=== PATIENT | female | born 1985 | race Caucasian/White ===

== ENCOUNTER 2018-05-01 13:49 | Emergency (ER) | payer BC ==
[2018-05-01] MEDS ORDERED: METOCLOPRAMIDE 5 MG/ML 2 ML VIAL IVP STA (14:13)
--- NOTE | 2018-05-01 14:13 | ED ---
General Adult HPI - General Chief complaint: Abdominal Pain Stated complaint: Abd Pain-19 wks Source: patient Mode of arrival: ambulatory Limitations: no limitations - History of Present Illness Initial comments: Dictation was produced using relocality dictation software. please excuse any grammatical, word or spelling errors. Chief Complaint: 33-year-old female is allegedly 19 weeks presents with suprapubic pain. History of Present Illness: Patient is 33-year-old female presents with suprapubic/right lower quadrant abdominal pain. Patient states she denies any abdominal surgery. Her symptoms started yesterday. States that she associated with nausea. She does have some fever and chills. Patient called her DOUBLE BACK OPERATOR told her to wait 24 hours and if her pain didn't resolve come to the emergency department. Patient states that she does have some pain experience worsening pain with the car ride here. She also couple episodes of diarrhea. The ROS documented in this emergency department record has been reviewed and confirmed by me. Those systems with pertinent positive or negative responses have been documented in the HPI. All other systems are other negative and/or noncontributory. - Related Data Home Medications Medication Instructions Recorded Confirmed Hsr-Ulyx-Gaxtf Acid 1 tab PO HS 02/21/16 05/01/18 [-U Capsule (formulary)] Allergies Allergy/AdvReac Type Severity Reaction Status Date / Time No Known Allergies Allergy Verified 05/01/18 14:02 Review of Systems ROS Statement: Those systems with pertinent positive or pertinent negative responses have been documented in the HPI. ROS Other: All systems not noted in ROS Statement are negative. Past Medical History Past Medical History: No Reported History Additional Past Medical History / Comment(s): Obstetric history: This is her first and she has has care with me since 9 weeks. A+, abs neg, Rub Imm, RPR NR, Hep B Neg, HIV NR. normal 1hr GTT. normal anatomy US. GBS neg. History of Any Multi-Drug Resistant Organisms: None Reported Past Surgical History: No Surgical Hx Reported Past Psychological History: Depression Smoking Status: Never smoker Past Alcohol Use History: None Reported Past Drug Use History: None Reported - Past Family History Mother Family Medical History: Hypertension General Exam - General Exam Comments Initial Comments: PHYSICAL EXAM: General Impression: Alert and oriented x3, not in acute distress HEENT: Normocephalic atraumatic, extra-ocular movements intact, pupils equal and reactive to light bilaterally, mucous membranes moist. Cardiovascular: Heart regular rate and rhythm, S1&S2 audible, no murmurs, rubs or gallops Chest: Lungs clear to auscultation bilaterally, no rhonchi, no wheeze, no rales Abdomen: Bowel sounds present, abdomen soft, non-tender, non-distended, no organomegaly, appropriately gravid, mild rebound tenderness Musculoskeletal: Pulses present and equal in all extremities, no peripheral edema Motor: Power 5/5 bilaterally, no focal deficits noted Neurological: CN II-XII grossly intact, no focal motor or sensory deficits noted Skin: Intact with no visualized rashes Psych: Normal affect and mood Limitations: no limitations Course Vital Signs 05/01/18 05/01/18 13:50 16:00 Temperature 98.3 F 98.1 F Pulse Rate 93 71 Respiratory 18 18 Rate Blood Pressure 124/83 107/66 O2 Sat by Pulse 99 98 Oximetry Medical Decision Making - Medical Decision Making ED course: 33-year-old female presents with chief complaint of suprapubic/right lower quadrant pain. Vital signs upon arrival are within acceptable limits.Return evaluation obtained. Patient has mild leukocytosis of 11.2. Rest of CBC is unremarkable. Metabolic panel is positive for mild non-gap acidosis. Urinalysis is negative. Ultrasound of the appendix was performed or attempted. Nonvisualization of the appendix however no surrounding inflammatory changes. There is a complex cystic structure in the right pelvis measuring 2.0 cm could be secondary to the right ovary. Abdominal ultrasound was performed showing no acute processes. The ultrasound was performed showing viable intrauterine with good heart rate. Still abdominal examinations performed with improvement of right lower quadrant tenderness. She decision making was performed with patient. Discussed with patient that there is low however some clinical suspicion of appendicitis at this time. Discussed with patient that the test of choice would be CT with contrast to evaluate the appendix. Discussed with patient the risk of radiation to herself and fetus. Patient has strict return precautions. She prefers that no further testing be performed and she states that she will return should she have any worsening symptoms. Patient on a pillow bedside. Patient's ventilatory without complications. Patient pain is controlled. There is reason to believe that patient having symptoms in the right lower quadrant secondary to possible right ovarian cyst. Patient is agreeable and understandable to this plan. I believe this plan is reasonable patient is and strong suspicious for appendicitis. - Lab Data Result diagrams: 05/01/18 14:15 05/01/18 14:15 Lab Results 05/01/18 05/01/18 05/01/18 Range/Units 14:15 14:15 14:15 WBC 11.2 H (3.8-10.6) k/uL RBC 4.59 (3.80-5.40) m/uL Hgb 12.7 (11.4-16.0) gm/dL Hct 39.2 (34.0-46.0) % MCV 85.4 (80.0-100.0) fL MCH 27.6 (25.0-35.0) pg MCHC 32.4 (31.0-37.0) g/dL RDW 14.7 (11.5-15.5) % Plt Count 236 (150-450) k/uL Neutrophils % 79 % Lymphocytes % 12 % Monocytes % 6 % Eosinophils % 1 % Basophils % 0 % Neutrophils # 8.8 H (1.3-7.7) k/uL Lymphocytes # 1.3 (1.0-4.8) k/uL Monocytes # 0.7 (0-1.0) k/uL Eosinophils # 0.1 (0-0.7) k/uL Basophils # 0.0 (0-0.2) k/uL Sodium 137 (137-145) mmol/L Potassium 4.3 (3.5-5.1) mmol/L Chloride 108 H (98-107) mmol/L Carbon Dioxide 20 L (22-30) mmol/L Anion Gap 9 mmol/L BUN 10 (7-17) mg/dL Creatinine 0.39 L (0.52-1.04) mg/dL Est GFR (CKD-EPI)AfAm >90 (>60 ml/min/1.73 sqM) Est GFR (CKD-EPI)NonAf >90 (>60 ml/min/1.73 sqM) Glucose 88 (74-99) mg/dL Calcium 9.4 (8.4-10.2) mg/dL Total Bilirubin 0.3 (0.2-1.3) mg/dL AST 19 (14-36) U/L ALT 16 (9-52) U/L Alkaline Phosphatase 52 (38-126) U/L Total Protein 6.5 (6.3-8.2) g/dL Albumin 3.6 (3.5-5.0) g/dL Lipase 46 (23-300) U/L Urine Color Urine Appearance (Clear) Urine pH (5.0-8.0) Ur Specific [place] (1.001-1.035) Urine Protein (Negative) Urine Glucose (UA) (Negative) Urine Ketones (Negative) Urine Blood (Negative) Urine Nitrite (Negative) Urine Bilirubin (Negative) Urine Urobilinogen (<2.0) mg/dL Ur Leukocyte Esterase (Negative) Urine RBC (0-5) /hpf Urine WBC (0-5) /hpf Ur Squamous Epith Cells (0-4) /hpf Urine Bacteria (None) /hpf Hyaline Casts (0-2) /lpf Urine Mucus (None) /hpf Blood Type A Positive Blood Type Recheck No Antibody Screen NEGATIVE Spec Expiration Date 05/04/2018 - 231405/01/18 Range/Units 14:18 WBC (3.8-10.6) k/uL RBC (3.80-5.40) m/uL Hgb (11.4-16.0) gm/dL Hct (34.0-46.0) % MCV (80.0-100.0) fL MCH (25.0-35.0) pg MCHC (31.0-37.0) g/dL RDW (11.5-15.5) % Plt Count (150-450) k/uL Neutrophils % % Lymphocytes % % Monocytes % % Eosinophils % % Basophils % % Neutrophils # (1.3-7.7) k/uL Lymphocytes # (1.0-4.8) k/uL Monocytes # (0-1.0) k/uL Eosinophils # (0-0.7) k/uL Basophils # (0-0.2) k/uL Sodium (137-145) mmol/L Potassium (3.5-5.1) mmol/L Chloride (98-107) mmol/L Carbon Dioxide (22-30) mmol/L Anion Gap mmol/L BUN (7-17) mg/dL Creatinine (0.52-1.04) mg/dL Est GFR (CKD-EPI)AfAm (>60 ml/min/1.73 sqM) Est GFR (CKD-EPI)NonAf (>60 ml/min/1.73 sqM) Glucose (74-99) mg/dL Calcium (8.4-10.2) mg/dL Total Bilirubin (0.2-1.3) mg/dL AST (14-36) U/L ALT (9-52) U/L Alkaline Phosphatase (38-126) U/L Total Protein (6.3-8.2) g/dL Albumin (3.5-5.0) g/dL Lipase (23-300) U/L Urine Color Yellow Urine Appearance Clear (Clear) Urine pH 6.0 (5.0-8.0) Ur Specific [place] 1.020 (1.001-1.035) Urine Protein Trace H (Negative) Urine Glucose (UA) Negative (Negative) Urine Ketones Negative (Negative) Urine Blood Negative (Negative) Urine Nitrite Negative (Negative) Urine Bilirubin Negative (Negative) Urine Urobilinogen <2.0 (<2.0) mg/dL Ur Leukocyte Esterase Trace H (Negative) Urine RBC 1 (0-5) /hpf Urine WBC 1 (0-5) /hpf Ur Squamous Epith Cells 9 H (0-4) /hpf Urine Bacteria Rare H (None) /hpf Hyaline Casts 3 H (0-2) /lpf Urine Mucus Moderate H (None) /hpf Blood Type Blood Type Recheck Antibody Screen Spec Expiration Date Disposition Clinical Impression: Right lower quadrant abdominal pain Disposition: HOME SELF-CARE Condition: Good Instructions: Abdominal Pain in (ED) Is patient prescribed a controlled substance at d/c from ED?: No Referrals: Sam Angelo MD [Primary Care Provider] - 1-2 days Time of Disposition: 16:24
[2018-05-01 14:38] LABS: Appearance,Urine Clear (Clear); Bacteria,Urine Rare /hpf; Bilirubin,Urine Negative (Negative); Blood,Urine Negative (Negative); Color,Urine Yellow; Glucose,Urine (UA) Negative (Negative); Hyaline Casts,Urine 3 /lpf (0-2); Ketones,Urine Negative (Negative); Leukocyte Esterase,Urine Trace (Negative); Mucus,Urine Moderate /hpf; Nitrite,Urine Negative (Negative); Protein,Urine Trace (Negative); RBC,Urine 1 /hpf (0-5); Squamous Epithelial Cell,Urine 9 /hpf (0-4); Urobilinogen,Urine <2.0 mg/dL (<2.0); WBC,Urine 1 /hpf (0-5)
[2018-05-01 15:09] LABS: Basophils % (A) 0 %; Eosinophils # (A) 0.1 k/uL (0-0.7); Eosinophils % (A) 1 %; HCT 39.2 % (34.0-46.0); HGB 12.7 gm/dL (11.4-16.0); Lymphocytes # (A) 1.3 k/uL (1.0-4.8); Lymphocytes % (A) 12 %; MCH 27.6 pg (25.0-35.0); MCHC 32.4 g/dL (31.0-37.0); MCV 85.4 fL (80.0-100.0); Mean Platelet Volume 8.2; Monocytes # (A) 0.7 k/uL (0-1.0); Monocytes % (A) 6 %; Neutrophils # (A) 8.8 k/uL (1.3-7.7); Neutrophils % (A) 79 %; Platelet Count 236 k/uL (150-450); RBC 4.59 m/uL (3.80-5.40); RDW 14.7 % (11.5-15.5); WBC 11.2 k/uL (3.8-10.6)
[2018-05-01 15:13] LABS: ALT 16 U/L (9-52); AST 19 U/L (14-36); Albumin 3.6 g/dL (3.5-5.0); Alkaline Phosphatase 52 U/L (38-126); Anion Gap 9 mmol/L; Blood Urea Nitrogen 10 mg/dL (7-17); Calcium 9.4 mg/dL (8.4-10.2); Carbon Dioxide 20 mmol/L (22-30); Chloride 108 mmol/L (98-107); Glucose 88 mg/dL (74-99); Lipase 46 U/L (23-300); Potassium 4.3 mmol/L (3.5-5.1); Sodium 137 mmol/L (137-145); Total Bilirubin 0.3 mg/dL (0.2-1.3); Total Protein 6.5 g/dL (6.3-8.2)
--- NOTE | 2018-05-01 15:40 | US ---
EXAMINATION TYPE: US abdomen complete DATE OF EXAM: 05/01/2018 COMPARISON: NONE CLINICAL HISTORY: Pain. Nausea. Pt is 19 weeks EXAM MEASUREMENTS: Liver Length: 15.1 cm Gallbladder Wall: 0.2 cm CBD: 0.4 cm Spleen: 11.1 cm Right Kidney: 10.2 x 4.4 x 4.7 cm Left Kidney: 11.6 x 5.5 x 4.1 cm Pancreas: Tail obscured by overlying bowel gas,visualized portions wnl Liver: wnl Gallbladder: Slightly contracted. patient ate around noon. Evidence for sonographic Fuller's sign: No CBD: wnl as visualized, distal portion obscured by bowel gas Spleen: wnl Right Kidney: No hydronephrosis or masses seen Left Kidney: No hydronephrosis or masses seen Upper IVC: wnl Abd Aorta: wnl IMPRESSION: 1. Contracted gallbladder which limits its assessment. No obvious gallstones. Contracted state limits assessment for wall thickness.
--- NOTE | 2018-05-01 15:42 | US ---
EXAMINATION TYPE: US abdomen APPY DATE OF EXAM: 05/01/2018 COMPARISON: NONE CLINICAL HISTORY: Pain. Abdominal pain, nausea, diarrhea Patient is 19 weeks APPENDIX AP Diameter (normal < 6mm): Not visualized on this exam Is the appendix seen in its entirety from the proximal cecum to distal end: No Is there inflammatory changes or free fluid present: No Appendix not visualized due to overlying bowel gas. Right ovary is visualized and appears to have a c omplex cystic area measuring 2.0 x 1.3 x 1.9 cm IMPRESSION: 1. Nonvisualization of the appendix. Exam nondiagnostic for appendicitis. 2. There is a complex cystic structure in the right pelvis measuring 2.0 cm. This could be related to the right ovary correlate clinically.
--- NOTE | 2018-05-01 15:44 | US ---
EXAMINATION TYPE: US OB >= 14 wk fetus DATE OF EXAM: 05/01/2018 COMPARISON: None CLINICAL HISTORY: Pain TECHNIQUE: Transabdominal (TA) GESTATIONAL AGE / DATING Physician Established: (19 weeks/3 days) EDC: 09/22/2018 Dates by LMP: (19 weeks/3 days) EDC: 09/22/2018 Dates by First Scan: No previous this is first scan Dates by Current Scan: (19 weeks/5 days) EDC: 09/20/2018 Beta HCG (if available): Not available at this time SURVEY IUP: Single PLACENTA: Anterior PREVIA: No Previa TIARA: 12.6 cm Normal CERVICAL LENGTH (transabdominal: norm > 3.0cm): 3.5 cm BIOMETRY PRESENTATION: Vertex LIE: Longitudinal BPD: 4.67 cm 20 weeks / 1 days HC: 17.3 cm 19 weeks / 6 days AC: 14.1 cm 19 weeks / 3 days FL: 3.0 cm 19 weeks / 4 days ESTIMATED WEIGHT IN GRAMS: 300 grams ESTIMATED WEIGHT IN LBS/OZ: 0 lbs. 11 oz. WEIGHT PERCENTAGE BASED ON ESTABLISHED DATES: 53.7% HC/AC: 1.23 Normal FL/AC: 21.9 Normal HEART RATE: 159 bpm RHYTHM: Normal Viable IUP, measurements consistent with dates. Internal anatomy assessment was not submitted or perf ormed. Exam was a limited exam for viability through the emergency room. IMPRESSION: Viable intrauterine with a heart rate of 159 bpm and an estimated age of 19 weeks 5 days. R ecommend follow-up internal anatomy assessment on a short-term basis.
[2018-05-01 16:42] VITALS: BP 111/76; PULSE 70; RESP 16; TEMP 98
== END 2018-05-01 16:43 | disposition home or self-care (01) ==
LOC: EC 13:49
DX: O99.89 Other specified diseases and conditions complicating pregnancy, childbirth and the puerperium (principal); R10.31 Right lower quadrant pain; R11.0 Nausea; R50.9 Fever, unspecified; R19.7 Diarrhea, unspecified; O99.112 Other diseases of the blood and blood-forming organs and certain disorders involving the immune mechanism complicating pregnancy, second trimester; D72.829 Elevated white blood cell count, unspecified; O99.282 Endocrine, nutritional and metabolic diseases complicating pregnancy, second trimester; E87.2 Acidosis; Z3A.19 19 weeks gestation of pregnancy
CPT/HCPCS: 36415; 86900; 86901; 80053; 83690; 85025; 86850; 81001; 76705; 76700; 76805; 99284; 96374; J2765

== ENCOUNTER 2018-09-17 06:00 | Inpatient (IN) | payer BC ==
[2018-09-17] MEDS ORDERED: TERBUTALINE 1 MG/ML VIAL SQ PRN (06:30)
[2018-09-17] MEDS ORDERED: METHYLERGONOVINE 0.2 MG/ML 1 ML AMP IM PRN (06:30)
[2018-09-17] MEDS ORDERED: CARBOPROST TROMETHAMINE 250 MCG/ML 1 ML AMP IM PRN (06:30)
[2018-09-17] MEDS ORDERED: OXYTOCIN 30 UNITS/500 ML NS 30 UNIT in SALINE 1 500ML.BAG IV SCH (06:30)
[2018-09-17] MEDS ORDERED: LIDOCAINE 0.5% (PF) 5 MG/ML (50 ML SDV) SQ PRN (06:30)
[2018-09-17] MEDS ORDERED: OXYTOCIN 10 UNIT/ML 1 ML VIAL IM PRN (06:30)
[2018-09-17 06:39] VITALS: BMI 34.4
[2018-09-17] MEDS: LACTATED RINGERS 1,000 ML IV SCH ×2 (06:41→10:07)
[2018-09-17 06:58] LABS: Anisocytosis Slight; Basophils # (A) 0.1 k/uL (0-0.2); Basophils % (A) 0 %; Eosinophils # (A) 0.1 k/uL (0-0.7); Eosinophils % (A) 1 %; HCT 37.4 % (34.0-46.0); HGB 11.8 gm/dL (11.4-16.0); Hypochromasia Moderate; Lymphocytes # (A) 1.6 k/uL (1.0-4.8); Lymphocytes % (A) 15 %; MCH 25.4 pg (25.0-35.0); MCHC 31.6 g/dL (31.0-37.0); MCV 80.3 fL (80.0-100.0); Monocytes # (A) 0.7 k/uL (0-1.0); Monocytes % (A) 7 %; Neutrophils # (A) 8.3 k/uL (1.3-7.7); Neutrophils % (A) 76 %; Platelet Count 196 k/uL (150-450); RBC 4.66 m/uL (3.80-5.40); RDW 16.7 % (11.5-15.5); WBC 10.9 k/uL (3.8-10.6)
[2018-09-17] MEDS ORDERED: ROPIVACAINE 5MG/ML 20ML VIAL ONE (09:37)
[2018-09-17] MEDS ORDERED: fentaNYL (PF) 50 MCG/ML 5 ML AMP ONE (09:37)
[2018-09-17] MEDS ORDERED: SODIUM CHLORIDE 0.9% 100 ML BAG ONE (09:37)
[2018-09-17] MEDS ORDERED: ROPIVACAINE 100 MG, fentaNYL (PF) 200 MCG in SODIUM CHLORIDE 0.9% 76 ML EPIDURAL ONE (10:08)
[2018-09-17] MEDS ORDERED: SIMETHICONE 80 MG CHEWABLE PO PRN (13:40)
[2018-09-17] MEDS ORDERED: ZOLPIDEM 5 MG TAB PO PRN (13:40)
[2018-09-17] MEDS ORDERED: diphenhydrAMINE 50 MG CAP PO PRN (13:40)
[2018-09-17] MEDS ORDERED: HYDROCORTISONE 2.5% RECTAL CREAM 30 GM TUBE RECTAL PRN (13:40)
[2018-09-17] MEDS ORDERED: diphenhydrAMINE 50 MG/ML 1 ML VIAL IVP PRN ×2 (13:40)
[2018-09-17] MEDS ORDERED: WITCH HAZEL 1 EACH MED..PAD TOPICAL PRN (13:40)
[2018-09-17] MEDS ORDERED: BENZOCAINE/MENTHOL SPRAY 1 GM/SPRAY AEROSOL TOPICAL PRN (13:40)
[2018-09-17] MEDS ORDERED: LANOLIN CREAM 5 GM TUBE TOPICAL PRN (13:40)
[2018-09-17] MEDS ORDERED: diphenhydrAMINE 25 MG CAP PO PRN (13:40)
[2018-09-17] MEDS ORDERED: OXYTOCIN 20 UNITS/1000 ML NS 1,000 ML IV SCH (13:45)
[2018-09-17] MEDS: IBUPROFEN 600 MG TAB PO PRN (17:07)
[2018-09-17] MEDS: ACETAMINOPHEN TAB 325 MG TAB PO PRN (20:08)
[2018-09-17] MEDS: SENNOSIDES-DOCUSATE SODIUM 1 EACH TAB PO SCH (20:08)
[2018-09-18 00:10] VITALS: TEMP 97.8
[2018-09-18] MEDS: IBUPROFEN 600 MG TAB PO PRN ×2 (00:11→08:31)
[2018-09-18] MEDS: ACETAMINOPHEN TAB 325 MG TAB PO PRN ×2 (03:37→12:35)
--- NOTE | 2018-09-18 08:25 | P.HPOB ---
History of Present Illness H&P Date: 09/17/18 Chief Complaint: Induction of Labor 33-year-old presents at 39 weeks and 2 days for induction of labor. Her cervix 3 cm dilated, 80% effaced, -2 station. She is patricia irregularly. heart tones 130-135 with moderate variability and reactive. Review of Systems All systems: negative Constitutional: Denies chills, Denies fever Eyes: denies blurred vision, denies pain Ears, nose, mouth and throat: Denies headache, Denies sore throat Cardiovascular: Denies chest pain, Denies shortness of breath Respiratory: Denies cough Gastrointestinal: Denies abdominal pain, Denies diarrhea, Denies nausea, Denies vomiting Genitourinary: Denies dysuria, Denies hematuria Musculoskeletal: Denies myalgias Integumentary: Denies pruritus, Denies rash Neurological: Denies numbness, Denies weakness Psychiatric: Denies anxiety, Denies depression Endocrine: Denies fatigue, Denies weight change Past Medical History Past Medical History: No Reported History Additional Past Medical History / Comment(s): Obstetric history: First was a vaginal delivery. Second she had spontaneous . This is her third and she has has care with me since 6 weeks. A+, abs neg, Rub Imm, RPR NR, Hep B Neg, HIV NR. normal 1hr GTT. normal anatomy US. GBS neg. History of Any Multi-Drug Resistant Organisms: None Reported Past Surgical History: No Surgical Hx Reported Past Anesthesia/Blood Transfusion Reactions: No Reported Reaction Past Psychological History: Depression Smoking Status: Never smoker Past Alcohol Use History: None Reported Past Drug Use History: None Reported - Past Family History Mother Family Medical History: Hypertension Medications and Allergies Home Medications Medication Instructions Recorded Confirmed Type Smh-Umus-Wmvhw Acid 1 tab PO HS 02/21/16 09/17/18 History [-U Capsule (formulary)] Allergies Allergy/AdvReac Type Severity Reaction Status Date / Time No Known Allergies Allergy Verified 05/01/18 14:02 Exam Osteopathic Statement: *. No significant issues noted on an osteopathic structural exam other than those noted in the History and Physical/Consult. Vital Signs Temp Pulse Resp BP 09/18/18 00:10 97.8 F 101 H 16 130/80 09/17/18 20:00 98.2 F 103 H 16 144/80 09/17/18 15:49 98 18 128/77 09/17/18 15:19 98.4 F 99 16 131/82 09/17/18 14:49 91 18 122/72 09/17/18 14:34 86 18 124/74 09/17/18 14:19 93 16 122/72 09/17/18 14:04 100 18 131/86 09/17/18 13:49 96 18 126/76 Intake and Output 09/17/18 09/18/18 09/18/18 22:59 06:59 14:59 Intake Total 150 Balance 150 Intake: Oral 150 Other: # Voids 1 Heart: Regular rate and rhythm Lungs: Clear to auscultation bilaterally Abdomen: Soft, nontender Extremities: Negative Homans sign Results Result Diagrams: 09/17/18 06:30 Assessment and Plan (1) Normal labor Current Visit: No Status: Resolved Code(s): O80 - ENCOUNTER FOR FULL-TERM UNCOMPLICATED DELIVERY SNOMED Code(s): 65793168 Plan: 1.Admit to family place 2. Induction of labor with amniotomy and Pitocin 3. Anticipate normal vaginal delivery
--- NOTE | 2018-09-18 08:27 | P.PROBDLV ---
Vaginal Delivery Note - . Vaginal Delivery Note: 33-year-old presents at 39 weeks and 2 days for induction of labor. Her cervix 3 cm dilated, 80% effaced, -2 station. She is patricia irregularly. heart tones 130-135 with moderate variability and reactive. Pitocin was started. Amniotomy performed at 7:49 AM, clear fluid noted. She did become uncomfortable and got an epidural around 9:45 AM. She was completely dilated at 1303, pushed and delivered a viable female infant over intact perineum under epidural anesthesia at 1311. Head delivered OA, nuchal cord 1 easily reduced, anterior shoulder delivered gentle downward guidance followed by posterior shoulder and rest of body. Nose mouth bulb suctioned, cord clamped and cut, infant placed on mother's abdomen. Apgars 8, 9, weight 7 lbs. 14 oz. Placenta delivered spontaneously, intact with three-vessel cord at 1313. Vagina, cervix, and perineum were inspected. First-degree perineal laceration was repaired with 3-0 Vicryl. Estimated blood loss 200 mL. Mother and baby in stable condition.
--- NOTE | 2018-09-18 08:28 | P.DS ---
Providers Date of admission: 09/17/18 06:10 Expected date of discharge: 09/18/18 Attending physician: Rena Chauhan Primary care physician: Stated None - Discharge Diagnosis(es) (1) Normal vaginal delivery Current Visit: No Status: Acute Hospital Course: Patient presented for induction of labor. She underwent a normal vaginal delivery. Her course was uncomplicated. She'll be discharged home day #1 in stable condition to follow-up with me in 6 weeks. Plan - Discharge Summary New Discharge Prescriptions: No Action Uey-Owve-Xkrci Acid [-U Capsule (formulary)] 1 tab PO HS Discharge Medication List Uuh-Txhe-Olwmi Acid [-U Capsule (formulary)] 1 tab PO HS 02/21/16 [History]
[2018-09-18] MEDS: SENNOSIDES-DOCUSATE SODIUM 1 EACH TAB PO SCH (08:31)
[2018-09-18 09:33] VITALS: BP 111/85; PULSE 96; RESP 18
== END 2018-09-18 14:20 | disposition home or self-care (01) | DRG 807 ==
LOC: 4FBP 06:10
PROVIDERS: ADMIT Obstetrics & Gynecology; ATTEND Obstetrics & Gynecology
PROC: 10E0XZZ Delivery of Products of Conception, External Approach (ICD-10-PCS; principal; 2018-09-17)
PROC: 0HQ9XZZ Repair Perineum Skin, External Approach (ICD-10-PCS; 2018-09-17)
PROC: 10907ZC Drainage of Amniotic Fluid, Therapeutic from Products of Conception, Via Natural or Artificial Opening (ICD-10-PCS; 2018-09-17)
PROC: 3E033VJ Introduction of Other Hormone into Peripheral Vein, Percutaneous Approach (ICD-10-PCS; 2018-09-17)
PROC: 00HU33Z Insertion of Infusion Device into Spinal Canal, Percutaneous Approach (ICD-10-PCS; 2018-09-17)
PROC: 3E0R3BZ Introduction of Anesthetic Agent into Spinal Canal, Percutaneous Approach (ICD-10-PCS; 2018-09-17)
DX: O69.81X0 Labor and delivery complicated by cord around neck, without compression, not applicable or unspecified (principal); Z37.0 Single live birth; O99.344 Other mental disorders complicating childbirth; F32.9 Major depressive disorder, single episode, unspecified; O70.0 First degree perineal laceration during delivery; Z3A.39 39 weeks gestation of pregnancy
CPT/HCPCS: 85025; 86850; 86900; 86901